=== PATIENT | female | born 1955 | race Two or more races ===

== ENCOUNTER 2017-10-17 23:11 | Emergency (ER) | payer BC, OTHER ==
[~2017-10-17] VITALS: Ht 162.6 cm; Wt 93.9 kg
[~2017-10-17 23:11] MED LIST: PERCOCET 5-3251 EACH ORAL; VALIUM5 MG ORAL
[2017-10-17] MEDS ORDERED: Racemic EPINEPHrine 2.25% 0.5ml HHN ONE (23:30)
[2017-10-17] MEDS ORDERED: Dexamethasone 4mg/ml vial IVP ONE (23:30)
[2017-10-18 00:56] LABS: BASOPHILS % (AUTO) 0.4 % (0.0-2.0); HEMATOCRIT 37.5 % (37.0-47.0); HEMOGLOBIN 12.6 G/DL (12.0-16.0); LYMPHOCYTES % (AUTO) 14.6 % (20.0-45.0); MEAN CORPUSCULAR VOLUME 89 FL (80-99); MONOCYTES % (AUTO) 3.9 % (1.0-10.0); NEUTROPHILS % (AUTO) 81.2 % (45.0-75.0); PLATELET COUNT 259 K/UL (150-450); RED BLOOD COUNT 4.21 M/UL (4.20-5.40); RED CELL DISTRIBUTION WIDTH 12.4 % (11.6-14.8); WHITE BLOOD COUNT 8.2 K/UL (4.8-10.8)
[2017-10-18 01:04] LABS: ANION GAP 13 mmol/L (5-15); BLOOD UREA NITROGEN 8 mg/dL (7-18); CALCIUM 8.5 MG/DL (8.5-10.1); CARBON DIOXIDE 22 MMOL/L (21-32); CHLORIDE 103 MMOL/L (98-107); CREATININE 0.8 MG/DL (0.55-1.30); POTASSIUM 3.5 MMOL/L (3.5-5.1); SODIUM 138 MMOL/L (136-145)
[2017-10-18 01:08] LABS: ALANINE AMINOTRANSFERASE 24 U/L (12-78); ALBUMIN 3.4 G/DL (3.4-5.0); ALBUMIN/GLOBULIN RATIO 0.9 (1.0-2.7); ALKALINE PHOSPHATASE 67 U/L (46-116); ASPARTATE AMINO TRANSFERASE 18 U/L (15-37); BILIRUBIN,TOTAL 0.3 MG/DL (0.2-1.0); CREATINE KINASE 177 U/L (26-308)
[2017-10-18 03:09] VITALS: BP 162/89
--- NOTE | 2017-10-18 03:20 | Emergency Room Report ---
History of Present Illness General Chief Complaint: Sore Throat Source: Patient, Family Member, EMS Present Illness HPI Patient had laminectomy, was intubated during the operation and was discharged to home. After getting home, she felt tightness in her chest and some fullness in her upper airway. She used her sister's Albuterol with some help. EMS transported here and felt she was complaining of throat discomfort (she denies this). Some phlegm produced, no color. No fevers. Back with some tenderness after the operation, but better than before. Pre op cor eval negative. No dysuria. Allergies: Coded Allergies: NO KNOWN ALLERGIES (Unverified Allergy, Unknown, 02/14/15) Patient History Past Medical History: see triage record Past Surgical History: other - laminectomy Social History: Denies: smoking Social History Narrative with sister Last Menstrual Period: n/a Reviewed Nursing Documentation: PMH: Agreed; PSxH: Agreed Nursing Documentation-PMH Hx Cardiac Problems: Yes - Hx SVT 2 years ago Hx Hypertension: Yes Review of Systems All Other Systems: negative except mentioned in HPI Physical Exam Vital Signs Date Time Temp Pulse Resp B/P (MAP) Pulse Ox O2 Delivery O2 Flow Rate FiO2 10/17/17 22:56 97.3 100 18 149/100 98 Room Air 97.3 10/17/17 23:43 21 Sp02 EP Interpretation: reviewed, normal General Appearance: well appearing, no apparent distress, GCS 15 Head: normocephalic Eyes: bilateral eye normal inspection, bilateral eye PERRL ENT: normal pharynx, moist mucus membranes Neck: supple, other - no stridor Respiratory: chest non-tender, lungs clear, normal breath sounds Cardiovascular #1: regular rate, rhythm Cardiovascular #2: 2+ radial (R) Gastrointestinal: normal inspection, normal bowel sounds, non tender, no mass, non-distended Musculoskeletal: gait/station normal, normal range of motion, tender - lumbar area (post op) Neurologic: alert, oriented x3, normal gait, grossly normal Psychiatric: mood/affect normal Skin: normal inspection, warm/dry, other - scar not examined Medical Decision Making Diagnostic Impression: Primary Impression: Dyspnea Qualified Codes: R06.00 - Dyspnea, unspecified Additional Impressions: post intubaton bronchospasm Status post lumbar laminectomy ER Course Patient with dyspnea post operative. DDx: aspiration, post intubation inflammation, AMI, bronchospasm amongst others. W/U with CXR and EKG and labs. Treatment with racemic epi and decadron. EKG without injury. CXR clear, no aspiration. Labs unremarkable. Patient improved with treatment. Patient stable for outpatient observation and treatment. Laboratory Tests Test 10/18/17 00:22 White Blood Count 8.2 K/UL (4.8-10.8) Red Blood Count 4.21 M/UL (4.20-5.40) Hemoglobin 12.6 G/DL (12.0-16.0) Hematocrit 37.5 % (37.0-47.0) Mean Corpuscular Volume 89 FL (80-99) Mean Corpuscular Hemoglobin 30.1 PG (27.0-31.0) Mean Corpuscular Hemoglobin Concent 33.7 G/DL (32.0-36.0) Red Cell Distribution Width 12.4 % (11.6-14.8) Platelet Count 259 K/UL (150-450) Mean Platelet Volume 8.2 FL (6.5-10.1) Neutrophils (%) (Auto) 81.2 % (45.0-75.0) H Lymphocytes (%) (Auto) 14.6 % (20.0-45.0) L Monocytes (%) (Auto) 3.9 % (1.0-10.0) Eosinophils (%) (Auto) 0.0 % (0.0-3.0) Basophils (%) (Auto) 0.4 % (0.0-2.0) Prothrombin Time 10.8 SEC (9.30-11.50) Prothrombin Time INR 1.0 (0.9-1.1) PTT 28 SEC (23-33) Sodium Level 138 MMOL/L (136-145) Potassium Level 3.5 MMOL/L (3.5-5.1) Chloride Level 103 MMOL/L (98-107) Carbon Dioxide Level 22 MMOL/L (21-32) Anion Gap 13 mmol/L (5-15) Blood Urea Nitrogen 8 mg/dL (7-18) Creatinine 0.8 MG/DL (0.55-1.30) Estimate Glomerular Filtration Rate > 60 mL/min (>60) Glucose Level 177 MG/DL (74-106) H Calcium Level 8.5 MG/DL (8.5-10.1) Total Bilirubin 0.3 MG/DL (0.2-1.0) Aspartate Amino Transferase (AST) 18 U/L (15-37) Alanine Aminotransferase (ALT) 24 U/L (12-78) Alkaline Phosphatase 67 U/L (46-116) Total Creatine Kinase 177 U/L (26-308) Troponin I 0.000 ng/mL (0.000-0.056) Total Protein 7.1 G/DL (6.4-8.2) Albumin 3.4 G/DL (3.4-5.0) Globulin 3.7 g/dL Albumin/Globulin Ratio 0.9 (1.0-2.7) L EKG Diagnostic Results Rate: normal Rhythm: NSR ST Segments: no acute changes Rhythm Strip Diag. Results Rhythm: NSR, no PVC's, no ectopy Chest X-Ray Diagnostic Results Chest X-Ray Diagnostic Results : Chest X-Ray Ordered: Yes # of Views/Limited/Complete: 1 View Indication: Other EP Interpretation: Yes Interpretation: no consolidation, no effusion, no pneumothorax Impression: No acute disease Electronically Signed by: Chin Gibson MD Last Vital Signs Date Time Temp Pulse Resp B/P (MAP) Pulse Ox O2 Delivery O2 Flow Rate FiO2 10/18/17 03:42 97.7 72 18 162/89 94 Room Air 21 97.7 Status: improved Disposition: HOME, SELF-CARE Condition: Improved Scripts Albuterol Sulfate* (ALBUTEROL SULFATE MDI*) 8.5 Gm Hfa.aer.ad 2 PUFF INH Q6H, #1 EA 0 Refills Prov: Chin Gibson M.D. 10/18/17 Prednisone* (PREDNISONE*) 20 Mg Tablet 40 MG ORAL DAILY, #10 TAB Prov: Chin Gibson M.D. 10/18/17 Referrals: [facility] (PCP) Chin Gibson M.D. Oct 18, 2017 03:20
[2017-10-18] MEDS ORDERED: PREDNISONE20 MG ORAL (03:22)
[2017-10-18] MEDS ORDERED: ALBUTEROL SULF8.5 GM INH (03:22)
[2017-10-18 03:42] VITALS: BP 162/89
--- NOTE | 2017-10-18 14:06 | Cardiology Report ---
APPROVED REPORT EKG Measurement Heart [id number] NC [id number] [id number] Normal sinus rhythm Nonspecific T wave abnormality Abnormal ECG
== END 2017-10-18 03:42 | disposition home or self-care (01) ==
LOC: EDBD 23:11 → EMR 23:26
DX: R06.00 Dyspnea, unspecified (principal); Z98.890 Other specified postprocedural states; I10 Essential (primary) hypertension
CPT/HCPCS: 36415; 71045; 80053; 82550; 84484; 85025; 85610; 85730; 93005; 94640; 94664; 96374; 99283; J1100